=== PATIENT | female | born 1960 | race Caucasian/White ===

== ENCOUNTER 2016-10-17 23:09 | Emergency (ER) | payer MEDICAID ==
[~2016-10-17 23:09] MED LIST: AUGMENTIN875 MG PO; BREO ELLIP1 PUFF/DOS IH; COMPAZINE10 MG PO; DECADRON-DPS4 MG PO; DULERA 100/58.8 GM IH; FLAGYL-DPS500 MG PO; MAALOX DPS30 ML PO; MILK OF MAGNESI10 ML PO; MIRALAX PACKET17 GM PO; MONTELUKAST SOD10 MG PO; NAPROSYN DPS250 MG PO; NORCO 5-325 TA1 EACH PO; PEPCID DPS20 MG PO; PROAIR HFA8.5 GM IH; SURFAK DPS240 MG PO; TESSALON PERLE100 M1 PO; TYLENOL DPS325 MG PO; XARELTO20 MG PO; ZESTRIL DPS10 MG PO; ZOFRAN4 MG PO
--- NOTE | 2016-10-19 06:40 | ER ---
ADMIT: 10/17/2016 RM/LOC: ER [facility] MR#: [id number] [facility] [address] [place], [place] [address] [place] [address] [place] [id number] Emergency Room Report SEX: F AGE: 56 : 1960 DATE: 10/17/2016 ADDENDUM: A 56-year-old female, comes in with crampy abdominal discomfort and vomiting. Physical exam shows no tenderness. On examination, she has active bowel sounds and remainder of physical exam is unremarkable. I did check a urinalysis, which was normal except for positive nitrite. She was given Zofran, which improved her nausea. She still felt a little bit of crampiness after that, so she was given Phenergan and symptoms improved. She is discharged home with a prescription for Phenergan, to return for any concerning symptoms. Otherwise, follow up with [facility] next week. DIAGNOSES: 1. Nausea. 2. Abdominal pain. Dawit Hui MD/ bindu JOB #: [id number] CC: Dawit Hui MD, Attending Physician Debora Groves APRN-LORRAINE, Family Physician
[2016-10-22] MEDS ORDERED: CARDIZEM CD DP120 MG PO (06:07)
[2017-06-03] MEDS ORDERED: MILK OF MAGNESI10 ML PO (15:56)
[2017-06-03] MEDS ORDERED: TYLENOL DPS325 MG PO (15:56)
== END 2016-10-18 01:20 | disposition home or self-care (01) ==
LOC: ER 23:09
DX: R11.0 Nausea (principal); R10.9 Unspecified abdominal pain; I10 Essential (primary) hypertension; Z91.040 Latex allergy status; Z79.899 Other long term (current) drug therapy; Z85.038 Personal history of other malignant neoplasm of large intestine

== ENCOUNTER → 2016-11-29 | Outpatient (CLI) | payer MEDICAID ==
[~2016-11-29] MED LIST changes: +CARDIZEM CD DP120 MG PO
== END | disposition home or self-care (01) ==
LOC: RAD.S 13:36
DX: C18.7 Malignant neoplasm of sigmoid colon (principal); K80.20 Calculus of gallbladder without cholecystitis without obstruction; N20.0 Calculus of kidney; I10 Essential (primary) hypertension

== ENCOUNTER 2016-12-15 08:52 | Emergency (ER) | payer MEDICAID ==
--- NOTE | 2017-01-07 21:30 | ER ---
ADMIT: 12/15/2016 RM/LOC: ER [facility] MR#: [id number] [address] [place] [address] [place] [address] Emergency Room Report SEX: F AGE: 56 : 1960 DATE: 12/15/2016 This 56-year-old female has had chronic back pain since June. She has been started on gabapentin, seen physical therapist, but she is tired of having the back pain. See T-sheet for remainder of history and physical. The patient is diagnosed with acute exacerbation of chronic back pain. Given a prescription for Randall, encouraged to follow up with her primary doctor this week. Adam Monroy MD/ bindu JOB #: [id number] CC: Adam Monroy MD, Attending Physician
[2017-06-03] MEDS ORDERED: TYLENOL DPS325 MG PO (15:56)
[2017-06-03] MEDS ORDERED: MILK OF MAGNESI10 ML PO (15:56)
== END 2016-12-15 10:34 | disposition home or self-care (01) ==
LOC: ER 08:52
DX: M54.5 Low back pain (principal); G89.29 Other chronic pain; I10 Essential (primary) hypertension; J45.909 Unspecified asthma, uncomplicated; Z85.038 Personal history of other malignant neoplasm of large intestine; Z91.040 Latex allergy status; Z79.899 Other long term (current) drug therapy

== ENCOUNTER → 2016-12-27 | Outpatient (CLI) | payer MEDICAID | END | disposition home or self-care (01) | LOC: RAD.S 14:15 | DX: M54.31 Sciatica, right side (principal); N20.0 Calculus of kidney; K80.20 Calculus of gallbladder without cholecystitis without obstruction; M51.37 Other intervertebral disc degeneration, lumbosacral region ==

== ENCOUNTER 2017-01-24 10:55 | Emergency (ER) | payer MEDICAID ==
--- NOTE | 2017-01-30 08:44 | ER ---
ADMIT: 01/24/2017 RM/LOC: ER [facility] MR#: [id number] [address] [place] [address] [place] [address] Emergency Room Report SEX: F AGE: 56 : 1960 DATE: 01/24/2017 CHIEF COMPLAINT: Back pain. HISTORY OF PRESENT ILLNESS: A 56-year-old, female, who presents with 7 months of chronic low back pain. States it has acutely gotten worse in the last couple of days. She rates the pain as 9/10. Denies any fever, chills, loss of bowel or bladder function, nausea, vomiting. She states the pain is worse with movement and relieved by nothing. Has seen Dr. Lovett recently who recommended spinal epidural injection. She said she is working on setting up this appointment now. COURSE IN THE ER: The patient seen and examined. She is in no acute distress. She does have limited motion of the right leg. Pain radiates down the right leg. Motor is intact. Sensation is normal in lower legs bilaterally. Reflexes 2+ bilaterally. I did give her Toradol 15, Valium 5 IM. She states this did not relieve her pain, so I did give her morphine 5 IM as well as Zofran 4 mg ODT. IMPRESSION: Low back pain, right-sided sciatica, and chronic low back pain. DISPOSITION: The patient was given a script for Flexeril 5 mg 1 tab p.o. t.i.d. for 5 days #15. She is to follow up with Dr. Lovett for the epidural injections. Apply ice or heat as needed. Continue activity as tolerated. Continue all home medications except the muscle relaxant prescribed by Dr. Lovett. She can use this at night as she pleases but she should not double up with the Flexeril. In addition, can return with worsening signs or symptoms. Discharged in stable condition. VIVI Gomez / Javier Hernandez MD / bindu JOB #: [id number] CC: Javier Hernandez MD, Attending Physician Debora Groves, BRIM GREASER OPERATOR-VENDING MANAGER, Family Physician Kit Lovett MD
[2017-06-03] MEDS ORDERED: TYLENOL DPS325 MG PO (15:56)
[2017-06-03] MEDS ORDERED: MILK OF MAGNESI10 ML PO (15:56)
== END 2017-01-24 13:30 | disposition home or self-care (01) ==
LOC: ER 10:55
DX: M54.41 Lumbago with sciatica, right side (principal); G89.29 Other chronic pain; I10 Essential (primary) hypertension; J45.909 Unspecified asthma, uncomplicated; Z85.038 Personal history of other malignant neoplasm of large intestine; Z87.442 Personal history of urinary calculi; Z79.899 Other long term (current) drug therapy

== ENCOUNTER → 2017-02-18 | Outpatient (CLI) | payer MEDICAID | END | disposition home or self-care (01) | LOC: PTH.S 12:30 | DX: C18.7 Malignant neoplasm of sigmoid colon (principal); I10 Essential (primary) hypertension; K80.20 Calculus of gallbladder without cholecystitis without obstruction; N20.0 Calculus of kidney; N28.89 Other specified disorders of kidney and ureter; K63.89 Other specified diseases of intestine ==